=== PATIENT | female | born 1970 | race Caucasian/White ===

== ENCOUNTER 2018-03-12 11:54 | Emergency (ER) | payer BC ==
[2018-03-12 12:25] VITALS: BMI 26.4
--- NOTE | 2018-03-12 12:58 | PDOC ---
Attending Attestation - Resident Resident Name: BoAlbert - ED Attending Attestation I have performed the following: I have examined & evaluated the patient, The case was reviewed & discussed with the resident, I agree w/resident's findings & plan, Exceptions are as noted - HPI HPI: 03/12/18 18:10 Ms White is a 48 yo F recent dx of diverticulitis She presents to the ER with a complaint of Left groin pain Pt was seen at [facility] urgent care for her abdominal pain CT performed and demonstrated diverticulitis Pt notes low left groin pain No fevers or chills No diarrhea - Physicial Exam PE: 03/12/18 12:58 GENERAL: The patient is in no acute distress. LUNGS: Breath sounds equal, clear to auscultation bilaterally. No wheezes, and no crackles. HEART:Regular rate and rhythm, normal S1 and S2 without murmur, rub or gallop. ABDOMEN: Soft, mild left lower abdominal tenderness, Left groin tenderness to palpation EXTREMITIES: Normal range of motion, no edema. No clubbing or cyanosis. No erythema, or tenderness. NEUROLOGICAL: Cranial nerves II through XII grossly intact. Normal speech. No focal neurological deficits. SKIN: Warm, Dry, normal turgor, no rashes or lesions noted. 03/12/18 18:12 - Medical Decision Making 03/12/18 18:13 Laboratory Tests 03/12/18 03/12/18 03/12/18 14:05 14:05 14:05 WBC 11.8 H Hgb 14.6 Hct 44.2 Plt Count 417 BUN 7 Creatinine 0.7 Urine Blood 1+ H Urine Nitrite Negative Ur Leukocyte Esterase Negative Urine WBC (Auto) <1 Urine HCG, Qual 03/12/18 14:22 WBC Hgb Hct Plt Count BUN Creatinine Urine Blood Urine Nitrite Ur Leukocyte Esterase Urine WBC (Auto) Urine HCG, Qual Negative Pt presenting with new left groin tenderness No guarding or rebound to suggest pt is peritoneal Pt in severe pain, unclear if pt has complication of diverticulitis 03/12/18 18:14 CT pending Signed out to Dr Hdz
--- NOTE | 2018-03-12 13:01 | PDOC ---
History of Present Illness - General Stated Complaint: DIARRHEA Time Seen by Provider: 03/12/18 12:53 History Source: Patient - History of Present Illness Initial Comments: 03/12/18 14:52 48F with pmh of Diverticulitis, diagnosed on Saturday, treated with Cipro and flagyl presents to the ED due to increasing pain to the LLQ/groin and diarrhea. She was seen by GI on Saturday, started on antibiotics. Has an appointment with GI tomorrow. 03/12/18 15:12 03/12/18 19:15 Past History - Past Medical History Allergies/Adverse Reactions: Allergies Allergy/AdvReac Type Severity Reaction Status Date / Time No Known Allergies Allergy Verified 03/12/18 12:17 Home Medications: Ambulatory Orders Ciprofloxacin [Cipro (Restricted To Id)] 500 mg PO BID 03/12/18 metroNIDAZOLE [Flagyl -] 500 mg PO QID 03/12/18 COPD: No GI Disorders: Yes (diverticulitis) - Immunization History Immunization Up to Date: Yes - Suicide/Smoking/Psychosocial Hx Smoking History: Never smoked Review of Systems - Review of Systems Able to Perform ROS?: Yes Is the patient limited Vietnamese proficient: No Constitutional: No: Symptoms Reported HEENTM: No: Symptoms Reported Respiratory: No: Symptoms reported Cardiac (ROS): No: Symptoms Reported ABD/GI: Yes: Diarrhea *Physical Exam - Vital Signs Last Vital Signs Temp Pulse Resp BP Pulse Ox 98.4 F 108 H 18 157/91 99 03/12/18 12:17 03/12/18 12:17 03/12/18 12:17 03/12/18 12:17 03/12/18 12:17 - Physical Exam General Appearance: Yes: Nourished, Appropriately Dressed. No: Apparent Distress HEENT: positive: EOMI, MANUEL, Normal ENT Inspection Respiratory/Chest: positive: Lungs Clear, Normal Breath Sounds. negative: Chest Tender, Respiratory Distress, Decreased Breath Sounds Cardiovascular: positive: Regular Rhythm, S1, S2, Tachycardia Gastrointestinal/Abdominal: positive: Normal Bowel Sounds, Tender (Above left groin), Flat, Soft Extremity: positive: Normal Capillary Refill, Normal Inspection, Normal Range of Motion Integumentary: positive: Normal Color, Dry, Warm Neurologic: positive: Fully Oriented, Alert, Normal Mood/Affect, Normal Response , Motor Strength 5/5 ED Treatment Course - LABORATORY CBC & Chemistry Diagram: 03/12/18 14:05 03/12/18 14:05 Medical Decision Making - Medical Decision Making 03/12/18 17:34 WBC 11.8. Will do CT abdomen to r/o perforation. Took many calls to laboratory to obtain urine . CT pending 03/12/18 19:16 CT abdomen: The liver, pancreas, adrenal glands and kidneys demonstrate no significant abnormalities. There is a 2.6 cm hypodense mass within the spleen. This most likely represents a hemangioma. The gallbladder is clear. There is no evidence of intra-abdominal or retroperitoneal lymphadenopathy or fluid collections. There is a fat-containing of local hernia just superior to the umbilicus. There is no evidence of pneumoperitoneum, bowel obstruction or intra-abdominal abscess. There is no CT evidence of acute appendicitis. Examination of the pelvis demonstrates no evidence of pelvic masses, fluid collections or lymphadenopathy. Multiple diverticula are noted within the sigmoid colon that evidence of acute diverticulitis. Patient ok to go home, continue abx and follow up with her GI doctor Dr. Villarreal tomorrow morning. *DC/Admit/Observation/Transfer Diagnosis at time of Disposition: Diverticulitis - Discharge Dispostion Disposition: HOME Condition at time of disposition: Improved Decision to Admit order: No - Referrals Referrals: Anam Yeh MD [Primary Care Provider] - - Patient Instructions Printed Discharge Instructions: DI for Diverticulitis Additional Instructions: Follow up with your Gi doctor tomorrow morning, Dr. villarreal. Continue your course of antibiotics. Come back to the ER for any new, worsening or concerning symptom. - Post Discharge Activity
[2018-03-12] MEDS ORDERED: SODIUM CHLORIDE 1,000 ML IV STA (13:40)
[2018-03-12 14:16] LABS: URINE APPEARANCE CLEAR; URINE BILIRUBIN NEGATIVE (<2.0 mg/dL); URINE COLOR STRAW; URINE GLUCOSE (UA) NEGATIVE (NEGATIVE); URINE KETONE 1+ (NEGATIVE); URINE LEUK ESTERASE NEGATIVE (NEGATIVE); URINE NITRITE NEGATIVE (NEGATIVE); URINE PROTEIN NEGATIVE (NEGATIVE); URINE UROBILINOGEN NEGATIVE mg/dL (0.2-1.0)
[2018-03-12 14:17] LABS: BASO % 1.2 % (0-2.0); EOS % 0.2 % (0-4.5); HEMATOCRIT 44.2 % (32.4-45.2); HEMOGLOBIN 14.6 GM/dL (10.7-15.3); LYMPH % 14.7 % (8-40); MCH 28.7 pg (25.7-33.7); MEAN CELL VOLUME 87.1 fl (80-96); MEAN PLT VOLUME 8.3 fl (7.5-11.1); MONO % 8.5 % (3.8-10.2); NEUT % 75.4 % (42.8-82.8); PLATELET COUNT 417 K/MM3 (134-434); RBC 5.08 M/mm3 (3.60-5.2); RDW 15.4 % (11.6-15.6); WHITE BLOOD COUNT 11.8 K/mm3 (4.0-10.0)
[2018-03-12 14:31] LABS: ALBUMIN 4.4 g/dl (3.4-5.0); ANION GAP 16 (8-16); BILIRUBIN,TOTAL 0.6 mg/dL (0.2-1.0); BLOOD UREA NITROGEN 7 mg/dL (7-18); CALCIUM 9.7 mg/dL (8.5-10.1); CHLORIDE 100 mmol/L (98-107); CO2 19 mmol/L (21-32); CREATININE 0.7 mg/dL (0.55-1.02); GLUCOSE,RANDOM 83 mg/dL (74-106); POTASSIUM 4.7 mmol/L (3.5-5.1); SGOT/AST 22 U/L (15-37); SGPT/ALT 31 U/L (12-78); SODIUM 135 mmol/L (136-145)
[2018-03-12 14:32] LABS: EPI CELLS RARE /HPF (FEW); URINE BACTERIA RARE /hpf (NONE SEEN)
[2018-03-12 14:39] LABS: ALK PHOS 110 U/L (45-117)
[2018-03-12 19:10] VITALS: BP 151/87; PULSE 88; TEMP 98.3
== END 2018-03-12 19:45 | disposition home or self-care (01) ==
LOC: JER 11:54
PROC: 3E0337Z Introduction of Electrolytic and Water Balance Substance into Peripheral Vein, Percutaneous Approach (ICD-10-PCS; principal; 2018-03-12)
DX: K57.92 Diverticulitis of intestine, part unspecified, without perforation or abscess without bleeding (principal)
CPT/HCPCS: 36415; 74177-TC; 80053; 81003; 81015; 84443; 84703; 85025; 87086; 99283-25; J7030

== ENCOUNTER 2023-12-08 18:04 | Day surgery (SDC) | payer BC ==
[2023-12-08 18:09] VITALS: BMI 28.3
[2023-12-08] MEDS ORDERED: ONDANSETRON 4 MG/2 ML VIAL ONE ×2 (18:48→21:38)
[2023-12-08] MEDS: morphine CARPU-JECT 2 MG/1 ML DISP.SYRIN IVPUSH ONE ×2 (18:54→22:17)
[2023-12-08] MEDS: LACTATED RINGERS SOLUTION 1,000 ML/1,000 ML INFUS.BAG IV SCH (18:54)
[2023-12-08] MEDS: ONDANSETRON 4 MG/2 ML VIAL IVPUSH ONE ×2 (18:54→21:44)
[2023-12-08] MEDS: ACETAMINOPHEN 1000 MG/100 ML BAG IVPB ONE (18:55)
[2023-12-08] MEDS ORDERED: ACETAMINOPHEN INJECTION 100 ML IVPB ONE (18:56)
[2023-12-08 18:58] LABS: BASO % 0.6 % (0-2.0); EOS % 1.1 % (0-4.5); HEMATOCRIT 45.6 % (32.4-45.2); HEMOGLOBIN 15.7 GM/dL (10.7-15.3); LYMPH % 25.1 % (8-40); MCH 31.9 pg (25.7-33.7); MCHC 34.4 g/dl (32.0-36.0); MEAN CELL VOLUME 92.7 fl (80-96); MEAN PLT VOLUME 7.9 fl (7.5-11.1); MONO % 9.2 % (3.8-10.2); PLATELET COUNT 362 10^3/uL (134-434); RBC 4.92 M/mm3 (3.60-5.2); RDW 13.9 % (11.6-15.6); WHITE BLOOD COUNT 10.5 K/mm3 (4.0-10.0)
[2023-12-08 19:19] LABS: POTASSIUM 3.5 mmol/L (3.5-5.1)
[2023-12-08 19:22] LABS: CALCIUM 10.4 mg/dL (8.5-10.1)
[2023-12-08 19:23] LABS: ALBUMIN 4.6 g/dl (3.4-5.0); BLOOD UREA NITROGEN 10.8 mg/dL (7-18)
[2023-12-08 19:26] LABS: CREATININE 0.7 mg/dL (0.55-1.3)
[2023-12-08 19:27] LABS: BILIRUBIN,TOTAL 0.4 mg/dL (0.2-1); TOT PROT 8.1 g/dl (6.4-8.2)
[2023-12-08 19:28] LABS: LACTIC ACID 2.4 mmol/L (0.4-2.0)
[2023-12-08 20:29] LABS: PH,URINE 7.5 (5.0-8.0); URINE APPEARANCE CLEAR; URINE BILIRUBIN NEGATIVE (NEGATIVE); URINE COLOR YELLOW; URINE GLUCOSE (UA) NEGATIVE (NEGATIVE); URINE KETONE 1+ (NEGATIVE); URINE LEUK ESTERASE NEGATIVE (NEGATIVE); URINE NITRITE NEGATIVE (NEGATIVE); URINE PROTEIN NEGATIVE (NEGATIVE)
[2023-12-08] MEDS: LACTATED RINGERS SOLUTION 1,000 ML/1,000 ML INFUS.BAG IV STA (22:38)
[2023-12-08] MEDS ORDERED: HYDROmorphone HCl 2 MG/ML VIAL ONE (23:08)
[2023-12-08] MEDS: HYDROmorphone HCl 2 MG/ML VIAL IVPUSH ONE (23:11)
[2023-12-09] MEDS ORDERED: HYDROmorphone HCl 2 MG/ML VIAL IVPUSH PRN ×3 (00:07→18:19)
[2023-12-09] MEDS: ACETAMINOPHEN 1000 MG/100 ML BAG IVPB PRN (03:58)
[2023-12-09] MEDS: CYANOCOBALAMIN 1,000 MCG TABLET (FP) PO SCH (09:38)
[2023-12-09] MEDS: ENOXAPARIN NA (PORCINE) 40 MG/0.4 ML DISP.SYRIN SQ SCH (09:39)
[2023-12-09 10:06] LABS: BASO % 0.3 % (0-2.0); EOS % 0.1 % (0-4.5); HEMATOCRIT 42.4 % (32.4-45.2); HEMOGLOBIN 14.3 GM/dL (10.7-15.3); LYMPH % 10.2 % (8-40); MCH 31.3 pg (25.7-33.7); MCHC 33.8 g/dl (32.0-36.0); MEAN CELL VOLUME 92.9 fl (80-96); MEAN PLT VOLUME 8.3 fl (7.5-11.1); MONO % 11.3 % (3.8-10.2); NEUT % 78.1 % (42.8-82.8); PLATELET COUNT 302 10^3/uL (134-434); RBC 4.56 M/mm3 (3.60-5.2); RDW 14.1 % (11.6-15.6); WHITE BLOOD COUNT 17.3 K/mm3 (4.0-10.0)
[2023-12-09 10:07] LABS: INR 1.1 (0.83-1.09); PROTHROMBIN TIME (PATIENT) 12.4 SEC (9.7-13.0)
[2023-12-09 10:25] LABS: POTASSIUM 4.1 mmol/L (3.5-5.1)
[2023-12-09 10:40] LABS: BLOOD UREA NITROGEN 6.1 mg/dL (7-18)
[2023-12-09 10:41] LABS: CALCIUM 9.2 mg/dL (8.5-10.1); MAGNESIUM 1.6 mg/dL (1.8-2.4)
[2023-12-09 10:44] LABS: CREATININE 0.5 mg/dL (0.55-1.3); PHOSPHOROUS 3.1 mg/dL (2.5-4.9)
[2023-12-09 10:45] LABS: TOT PROT 6.6 g/dl (6.4-8.2)
[2023-12-09 10:48] LABS: ALBUMIN 3.7 g/dl (3.4-5.0)
[2023-12-09] MEDS: CEFTRIAXONE 1 GM in DEXTROSE 5%-WATER - 50 ML IVPB SCH (10:48)
[2023-12-09] MEDS ORDERED: BUPIVACAINE HCL/PF 0.25% (2.5MG/ML) 10 ML VIAL ONE (13:02)
[2023-12-09] MEDS: MAGNESIUM OXIDE 400 MG TABLET (FP) PO ONE (14:33)
[2023-12-09] MEDS ORDERED: PROMETHAZINE HCL 25 MG/1 ML VIAL IVPB PRN ×2 (15:56→18:02)
[2023-12-09] MEDS ORDERED: SUCCINYLCHOLINE CHLORIDE 200 MG/10 ML SYRINGE ONE (16:00)
[2023-12-09] MEDS ORDERED: FENTANYL CITRATE/PF 50 MCG/ML VIAL ONE ×3 (16:08→18:40)
[2023-12-09] MEDS: BUPIVACAINE HCL/PF 0.25% (2.5MG/ML) 10 ML VIAL IJ ONE (16:17)
[2023-12-09] MEDS ORDERED: ROCURONIUM BROMIDE 50 MG/5 ML SYRINGE ONE (17:06)
[2023-12-09] MEDS ORDERED: KETOROLAC TROMETHAMINE 30 MG/1 ML VIAL ONE (17:22)
[2023-12-09] MEDS ORDERED: SUGAMMADEX SODIUM 200 MG/2 ML VIAL ONE (17:23)
[2023-12-09] MEDS ORDERED: PROPOFOL 20 ML ONE (17:23)
[2023-12-09] MEDS ORDERED: LACTATED RINGERS SOLUTION 1,000 ML/1,000 ML INFUS.BAG IV SCH (18:02)
[2023-12-09] MEDS ORDERED: oxyCODONE HCL 5 MG TABLET PO PRN (18:19)
[2023-12-09] MEDS: ACETAMINOPHEN 1000 MG/100 ML BAG IVPB SCH (18:49)
[2023-12-09] MEDS: LACTATED RINGERS SOLUTION 1,000 ML/1,000 ML INFUS.BAG IV SCH (19:50)
[2023-12-09] MEDS: DOCUSATE SODIUM 100 MG CAPSULE (FP) PO SCH (22:41)
[2023-12-09 22:44] VITALS: RESP 18
[2023-12-10 07:57] LABS: BASO % 0.3 % (0-2.0); EOS % 0.1 % (0-4.5); HEMATOCRIT 37.9 % (32.4-45.2); HEMOGLOBIN 12.6 GM/dL (10.7-15.3); LYMPH % 16.5 % (8-40); MCH 31.6 pg (25.7-33.7); MCHC 33.3 g/dl (32.0-36.0); MEAN CELL VOLUME 94.7 fl (80-96); MEAN PLT VOLUME 8.4 fl (7.5-11.1); MONO % 8.7 % (3.8-10.2); NEUT % 74.4 % (42.8-82.8); PLATELET COUNT 267 10^3/uL (134-434); RDW 14.2 % (11.6-15.6); WHITE BLOOD COUNT 13.3 K/mm3 (4.0-10.0)
[2023-12-10 08:19] LABS: POTASSIUM 3.5 mmol/L (3.5-5.1)
[2023-12-10 08:35] LABS: BLOOD UREA NITROGEN 5.8 mg/dL (7-18); CALCIUM 8.6 mg/dL (8.5-10.1)
[2023-12-10 08:36] LABS: MAGNESIUM 1.7 mg/dL (1.8-2.4)
[2023-12-10 08:38] LABS: CREATININE 0.5 mg/dL (0.55-1.3)
[2023-12-10 08:40] LABS: BILIRUBIN,TOTAL 1.1 mg/dL (0.2-1); TOT PROT 5.7 g/dl (6.4-8.2)
[2023-12-10 08:47] LABS: ALBUMIN 2.9 g/dl (3.4-5.0)
[2023-12-10] MEDS: CEFTRIAXONE 1 GM in DEXTROSE 5%-WATER - 50 ML IVPB SCH (10:23)
[2023-12-10] MEDS: CYANOCOBALAMIN 1,000 MCG TABLET (FP) PO SCH (10:23)
[2023-12-10] MEDS: ENOXAPARIN NA (PORCINE) 40 MG/0.4 ML DISP.SYRIN SQ SCH (10:25)
[2023-12-10 13:29] VITALS: BP 135/67; PULSE 78; TEMP 98
== END 2023-12-10 14:41 | disposition home or self-care (01) ==
LOC: JER 18:04 → JERBED 22:14 → UNDOADMIN 22:14 → J5S 12-09 02:15 → JERBED 12-09 02:15 → JASUSAT 12-09 10:06 → SUATTDRO 12-09 10:06 → J5S 12-09 12:07 → JASUSAT 12-10 14:41
PROVIDERS: ATTEND Nurse Practitioner Family
PROC: 0FT44ZZ Resection of Gallbladder, Percutaneous Endoscopic Approach (ICD-10-PCS; principal; 2023-12-09 14:30)
DX: K80.20 Calculus of gallbladder without cholecystitis without obstruction (principal)
CPT/HCPCS: 36415; 71045-TC-FY; 76705-TC; 80053; 81003; 83605; 83690; 83735; 84100; 85025; 85610; 86850; 86900; 86901; 87086; 88304-TC; 93005; 93010; 94010; 94760; 99285-25; J0131